=== PATIENT | female | born 2000 | race Caucasian/White ===

== ENCOUNTER 2020-09-12 13:38 | Outpatient (REF) | payer OTHER, SELFPAY | END 2020-09-12 13:39 | disposition home or self-care (01) | LOC: HO.LAB 13:38 | PROVIDERS: Visit Provider Internal Medicine | DX: Z20.828 Contact with and (suspected) exposure to other viral communicable diseases (principal) | CPT/HCPCS: C9803; U0003 ==

== ENCOUNTER → 2025-04-09 09:10 | Outpatient (BNVA) | payer SELFPAY | PROVIDERS: PCP Internal Medicine; Visit Provider Physician Assistant Medical | DX: Z01.84 Encounter for antibody response examination (principal) | CPT/HCPCS: 86706 ==

== ENCOUNTER → 2025-05-03 09:12 | Outpatient (BNVA) | payer SELFPAY | PROVIDERS: PCP Internal Medicine | DX: Z02.89 Encounter for other administrative examinations (principal) ==